=== PATIENT | female | born 1945 | race Caucasian/White ===

== ENCOUNTER 2018-05-09 17:45 | Emergency (ER) | payer MEDICARE, MEDICAID ==
[2018-05-09 17:58] VITALS: BP 148/74
[2018-05-09] MEDS ORDERED: Levalbuterol 1.25MG/0.5ML NEB INH ONE (19:10)
[2018-05-09] MEDS ORDERED: Albuterol 2.5 MG/3 ML NEB.SOL* (0.083%) INH ONE (19:39)
--- NOTE | 2018-05-09 20:02 | UC ---
Respiratory Complaint HPI - HPI Summary HPI Summary: Pt presents with c/o cough and chest tightness X 10 days. - History of Current Complaint Chief Complaint: UCRespiratory Stated Complaint: TIGHT CHEST,COUGH,CONGESTION Time Seen by Provider: 05/09/18 19:03 Hx Obtained From: Patient Hx Last Menstrual Period: n/a ?: No Onset/Duration: Gradual Onset, Lasting Days - 10, Still Present, Worse Since - onset Timing: Constant Severity Initially: Mild Severity Currently: Moderate Pain Intensity: 0 Character: Cough: Nonproductive Aggravating Factors: Exertion, Deep Breaths, Recumbent Position Alleviating Factors: Nothing Associated Signs And Symptoms: Positive: Wheezing, Dizziness, URI, Nasal Congestion - Risk Factors Pulmonary Embolism Risk Factors: Negative Cardiac Risk Factors: Hypertension Pseudomonas Risk Factors: Negative Tuberculosis Risk Factors: Negative - Allergies/Home Medications Allergies/Adverse Reactions: Allergies Allergy/AdvReac Type Severity Reaction Status Date / Time codeine Allergy Shakes Verified 05/09/18 17:59 PMH/Surg Hx/FS Hx/Imm Hx Previously Healthy: Yes Cardiovascular History: Hypertension Other History Of: Negative For: HIV, Hepatitis B, Hepatitis C, Anticoagulant Therapy - Surgical History Surgical History: Yes Surgery Procedure, Year, and Place: cardiac stents - Family History Known Family History: Positive: Cardiac Disease, Hypertension, Diabetes - Social History Occupation: Retired Lives: With Family Alcohol Use: None Substance Use Type: None Smoking Status (MU): Never Smoked Tobacco Have You Smoked in the Last Year: No - Immunization History Most Recent Influenza Vaccination: Fall 2014 Most Recent Pneumonia Vaccination: Fall 2014 Review of Systems Constitutional: Fatigue Skin: Negative Eyes: Negative ENT: Sinus Congestion Respiratory: Cough Cardiovascular: Chest Pain Gastrointestinal: Negative Genitourinary: Negative Motor: Negative Neurovascular: Negative Musculoskeletal: Negative Neurological: Negative Psychological: Negative Is Patient Immunocompromised?: No All Other Systems Reviewed And Are Negative: Yes Physical Exam Triage Information Reviewed: Yes Appearance: Well-Appearing Vital Signs: Initial Vital Signs Temp 99.2 F 05/09/18 17:52 Pulse 80 05/09/18 17:52 Resp 16 05/09/18 17:52 BP 148/74 05/09/18 17:52 Pulse Ox 99 05/09/18 17:52 Vital Signs Reviewed: Yes Eye Exam: Normal ENT: Positive: Nasal congestion Dental Exam: Normal Neck exam: Normal Respiratory Exam: Other Respiratory: Positive: Decreased breath sounds Cardiovascular Exam: Normal Musculoskeletal Exam: Normal Neurological Exam: Normal Psychological Exam: Normal Skin Exam: Normal UC Diagnostic Evaluation - Laboratory O2 Sat by Pulse Oximetry: 99 Respiratory Course/Dx - Differential Dx/Diagnosis Differential Diagnosis/HQI/PQRI: Bronchitis, Other - uri Provider Diagnoses: bronchitis Discharge - Sign-Out/Discharge Documenting (check all that apply): Patient Departure All imaging exams completed and their final reports reviewed: No Studies - Discharge Plan Condition: Stable Disposition: HOME Prescriptions: Amoxicillin PO (*) [Amoxicillin 500 MG CAP*] 500 mg PO Q12H #20 cap Benzonatate CAP* [Tessalon 100 MG CAP*] 100 mg PO Q8H PRN #30 cap PRN Reason: Cough predniSONE TAB* [Deltasone 20 MG TAB*] 20 mg PO DAILY #4 tab Patient Education Materials: Acute Bronchitis (ED) Referrals: Juan F Phillips MD [Primary Care Provider] - If Needed - Billing Disposition and Condition Condition: STABLE Disposition: Home
== END 2018-05-09 20:08 | disposition home or self-care (01) ==
LOC: UCCORT 17:45
DX: J40 Bronchitis, not specified as acute or chronic (principal); I10 Essential (primary) hypertension; Z88.5 Allergy status to narcotic agent
CPT/HCPCS: 93005; 99212; A9270-GY; G0463

== ENCOUNTER 2020-04-13 13:22 | Inpatient (IN) ==
[~2020-04-13 13:22] MED LIST: Buffered Lidocaine 1% SYRIN 1 ml INTRADERM ONE; Lactated Ringers 1000 ml BAG 1,000 ML IV SCH
[2020-04-13] MEDS ORDERED: ceFAZolin 2 GM PREMIX 2 GM/50 ML BAG ONE (13:49)
[2020-04-13] MEDS ORDERED: ROPIVACAINE 5 MG/ML 30 ML BTL (0.5%) ONE ×2 (13:59→14:59)
[2020-04-13] MEDS ORDERED: Dexmedetomidine 200 mcg/2 ml 2 ml VIAL (200 mcg) ONE (13:59)
[2020-04-13] MEDS ORDERED: Lidocaine 2% PF 5 ML VIAL ONE ×2 (13:59→15:23)
[2020-04-13] MEDS ORDERED: Midazolam 2 mg/2 ml VIAL 1 mg/ml 2 ml VIAL (2 mg) ONE ×2 (14:00→17:54)
[2020-04-13 14:44] LABS: Activated Partial Thrombo Time 30.8 seconds (26.0-38.0); INR 0.95 (0.82-1.09)
[2020-04-13] MEDS ORDERED: Bupivacaine 0.5% SDV PF 30ML VIAL ONE (14:49)
[2020-04-13] MEDS ORDERED: Phenylephrine 40 mcg/mL 10mL (400mcg) SYRINGE ONE (15:45)
[2020-04-13] MEDS ORDERED: Phenylephrine IV 10 MG/ML 1 ml VIAL ONE ×2 (15:57→17:16)
[2020-04-13] MEDS ORDERED: diPHENhydraMINE IV 50 MG/ML 1 ml VIAL (BENADRYL) IV PRN (16:33)
[2020-04-13] MEDS ORDERED: Morphine 2 MG/ML SYRINGE IV PRN (16:33)
[2020-04-13] MEDS ORDERED: Ondansetron ODT 4 mg TAB 4 MG TAB PO PRN (16:33)
[2020-04-13] MEDS ORDERED: Magnesium Hydroxide LIQ 30 ML UDC PO PRN (16:33)
[2020-04-13] MEDS ORDERED: Lactulose 30 ml UDC PO PRN (16:33)
[2020-04-13] MEDS ORDERED: diPHENhydraMINE 25 mg TAB PO PRN (16:33)
[2020-04-13] MEDS ORDERED: oxyCODONE/Acetamin 5/325 mg TAB PO PRN ×2 (16:33)
[2020-04-13] MEDS ORDERED: Propofol 10 MG/ML 20 ML BTL ONE (17:22)
[2020-04-13] MEDS ORDERED: Acetaminophen IV 1 GM/100ML 1,000 MG/100 ML VIAL IVPB ONE (18:05)
[2020-04-13] MEDS ORDERED: Naloxone 0.4 mg VIAL 0.4 mg/ml 1 ml VIAL IV PRN (18:05)
[2020-04-13] MEDS ORDERED: fentaNYL 100 mcg/2 ml 50 MCG/ML VIAL ONE (18:07)
[2020-04-13] MEDS: fentaNYL 100 mcg/2 ml 50 MCG/ML VIAL IV PRN ×4 (18:11→19:02)
[2020-04-13] MEDS ORDERED: Acetaminophen IV 1 GM/100ML 100 ML ONE (18:16)
[2020-04-13] MEDS ORDERED: Ondansetron 4 mg VIAL 2 MG/ML 2 ml VIAL ONE (19:46)
[2020-04-13] MEDS: Ondansetron 4 mg VIAL 2 MG/ML 2 ml VIAL IV PRN (19:47)
[2020-04-13] MEDS: Lactated Ringers 1000 ml BAG 1,000 ML IV SCH (20:51)
[2020-04-13] MEDS ORDERED: Rosuvastatin 20 mg TAB (NF) PO SCH (21:00)
[2020-04-13] MEDS: Mometasone/Formoter 100/5 MDI INH SCH (21:12)
[2020-04-13] MEDS: Magnesium Hydroxide LIQ 30 ML UDC PO SCH (22:06)
[2020-04-14] MEDS ORDERED: Polyethylene Glycol 3350 17 GM PACKET PO PRN (00:01)
[2020-04-14] MEDS: ceFAZolin 1 GM ADVAN 1 GM in NS 0.9% 50 ML 50 ML IVPB SCH ×3 (00:44→16:05)
[2020-04-14] MEDS: Ondansetron 4 mg VIAL 2 MG/ML 2 ml VIAL IV PRN ×2 (02:05→09:11)
[2020-04-14 06:16] LABS: Hematocrit 32 % (35-47); Hemoglobin 10.9 g/dL (12.0-16.0); Mean Platelet Volume 8.4 fL (7.4-10.4); Platelet Count 155 10^3/uL (150-450)
[2020-04-14] MEDS: Lactated Ringers 1000 ml BAG 1,000 ML IV SCH ×2 (06:46→18:02)
[2020-04-14 06:59] LABS: Calcium 8.8 mg/dL (8.6-10.3); EGFR African American 65.2 (>60); EGFR Non-African American 53.9 (>60); Potassium 4.1 mmol/L (3.5-5.0)
[2020-04-14] MEDS: Mometasone/Formoter 100/5 MDI INH SCH ×2 (08:43→19:46)
[2020-04-14] MEDS: Isosorbide Mononit ER 30mg TAB PO SCH (09:56)
[2020-04-14] MEDS: Vitamin THERAPEUTIC TAB PO SCH (10:51)
[2020-04-14] MEDS: Magnesium Hydroxide LIQ 30 ML UDC PO SCH ×2 (10:51→21:04)
[2020-04-15 04:41] LABS: Hematocrit 27 % (35-47); Hemoglobin 8.9 g/dL (12.0-16.0); Mean Platelet Volume 8.3 fL (7.4-10.4); Platelet Count 127 10^3/uL (150-450)
[2020-04-15] MEDS: Lactated Ringers 1000 ml BAG 1,000 ML IV SCH (04:47)
[2020-04-15] MEDS: Mometasone/Formoter 100/5 MDI INH SCH (08:59)
[2020-04-15] MEDS: Vitamin THERAPEUTIC TAB PO SCH (09:00)
[2020-04-15] MEDS: Isosorbide Mononit ER 30mg TAB PO SCH (09:01)
[2020-04-15] MEDS: Magnesium Hydroxide LIQ 30 ML UDC PO SCH (09:02)
[2020-04-15 11:33] VITALS: BP 121/48
[2020-04-17] MEDS ORDERED: Scopolamine PATCH Remove NOTE PATCH OFF ONE (07:30)
== END 2020-04-15 12:10 | DRG 470 ==
LOC: SSU 13:22 → OR 13:22
PROVIDERS: ADMIT Orthopaedic Surgery Adult Reconstructive Orthopaedic Surgery; ATTEND Orthopaedic Surgery Adult Reconstructive Orthopaedic Surgery